=== PATIENT | male | born 1940 | race Caucasian/White ===

== ENCOUNTER 2022-09-28 18:56 | Emergency (ER) | payer MEDICARE, BC | END 2022-09-28 21:53 | disposition home or self-care (01) | LOC: DL.ED 18:56 | DX: K59.00 Constipation, unspecified (principal); F17.210 Nicotine dependence, cigarettes, uncomplicated; I10 Essential (primary) hypertension; Z88.8 Allergy status to other drugs, medicaments and biological substances | CPT/HCPCS: 74019; 99283 ==

== ENCOUNTER 2023-02-20 18:36 | Emergency (ER) | payer MEDICARE, BC | END 2023-02-20 19:13 | disposition home or self-care (01) | LOC: DL.ED 18:36 | DX: S40.011A Contusion of right shoulder, initial encounter (principal); S50.11XA Contusion of right forearm, initial encounter; I10 Essential (primary) hypertension; Z88.8 Allergy status to other drugs, medicaments and biological substances; W18.2XXA Fall in (into) shower or empty bathtub, initial encounter | CPT/HCPCS: 99283 ==

== ENCOUNTER 2025-01-11 07:48 | Day surgery (SDC) | payer MEDICARE, BC ==
[~2025-01-11 07:48] MED LIST: Ondansetron 4 MG/2 ML SDV IVPUSH PRN
[2025-01-11] MEDS ORDERED: Sodium Chloride 0.9% 10 ML Syringe IV ONE (07:49)
[2025-01-11] MEDS ORDERED: Midazolam 1 MG/ML 2 ML SDV IV ONE (07:49)
[2025-01-11] MEDS ORDERED: Dexamethasone 4 MG/ML SDV IV ONE (07:49)
[2025-01-11] MEDS: Povidone-Iodine 5% Sterile Ophth Soln 30 ML Bottle EYERT ONE ×2 (08:29→08:50)
[2025-01-11] MEDS: Moxifloxacin 0.5% Ophth Soln 3 ML Bottle EYERT ONE (08:31)
[2025-01-11] MEDS: Phenylephrine 10% Ophth Soln 5 ML Bot EYERT ONE (08:33)
[2025-01-11] MEDS: Timolol Maleate 0.5% Ophth Soln 5 ML Bottle EYERT ONE (08:34)
[2025-01-11] MEDS: Cataract Ophth Solution EYERT ONE (08:37)
[2025-01-11] MEDS: Apraclonidine 0.5% Ophth Soln 5 ML Bot EYERT ONE (08:50)
[2025-01-11] MEDS: Dexamethasone/Neomycin/Polymyxin B Ophth Oint 3.5 GM Tube EYERT ONE (08:52)
[2025-01-11] MEDS: Diclofenac Sodium 0.1% Ophth Soln 5 ML Bottle EYERT ONE (08:52)
== END 2025-01-11 09:45 | disposition home or self-care (01) ==
LOC: DL.SDS 07:48
PROVIDERS: ATTEND Ophthalmology
DX: H25.811 Combined forms of age-related cataract, right eye (principal); I10 Essential (primary) hypertension; E78.5 Hyperlipidemia, unspecified; F17.210 Nicotine dependence, cigarettes, uncomplicated; Z88.8 Allergy status to other drugs, medicaments and biological substances; Z79.899 Other long term (current) drug therapy
CPT/HCPCS: 66982; A9270; J1100; J2003; J2250; J3373; V2632; 00142; 99100; J3490